=== PATIENT | male | born 1965 | race Caucasian/White ===

== ENCOUNTER 2017-12-22 12:15 | Emergency (ER) | payer OTHER ==
--- OUTSIDE RECORDS SUMMARY | 2017-12-22 12:18 | XMS REPORT | Clinical Summary ---
:1965 Author Organization [facility] Address [address] [place] [address] Care Team Providers Name Role Phone Jada Bullock MD Primary Care Provider Allergies Active Allergy Reactions Severity Noted Date Comments No Known Drug Allergies 12/02/2015 Current Medications Prescription Sig. Disp. Refills Start Date End Date Status cetirizine (ZyrTEC) 10 Take 10 mg by Active MG tablet mouth daily. dicyclomine (BENTYL) 10 Take 10 mg by Active MG capsule mouth 4 (four) times a day before meals and nightly. mometasone (NASONEX) 50 2 sprays into each 17 g 2 07/14/2016 07/14/2017 mcg/actuation nasal nostril daily. spray Active Problems Problem Noted Date Abnormal MRI 02/27/2017 Overview: Maybe low HGH Irritable bowel syndrome without diarrhea 02/02/2016 Post-nasal drip 02/02/2016 Anxiety 12/02/2015 Overview: rx for lexapro written in 09/2015; but he never filled it/took it He now reports that symptoms have improved with lifestyle modifications alone Insomnia 12/02/2015 Obstructive sleep apnea syndrome 12/02/2015 Overview: On 7 cm cpap managed by Dr Kirkland MVP (mitral valve prolapse) Encounters Date Type Specialty Care Team Description 09/13/2017 Hospital Encounter Procedural Mina Valderrama Cardiomegaly Cardiology MD Demario 09/11/2017 Transcribe Orders Procedural Mina Valderrama Cardiomegaly (Primary Cardiology MD Demario Dx) 09/07/2017 Hospital Encounter Procedural Mina Valderrama Moderate mitral Cardiology MD Demario regurgitation 09/05/2017 Transcribe Orders Procedural Mina Valderrama Moderate mitral Cardiology MD Demario regurgitation (Primary Dx) 02/27/2017 Office Visit Internal Medicine Jada Bullock, Encounter for general adult medical examination with abnormal findings (Primary Dx); Post-nasal drip; Primary insomnia; Anxiety; Obstructive sleep apnea syndrome; Need for hepatitis C screening test; Growth hormone deficiency after 12/21/2016 Family History Medical History Relation Name Comments Cancer Father Shiva Prostate Age 56, Spot Radiation Diabetes Father Shiva Type 2, Insulin, pills Hypertension Father Shiva Cancer Maternal Grandfather Amish Prostate 80's Diabetes Maternal Grandfather Amish Pills Hypertension Maternal Grandfather Amish Hypertension Maternal Grandmother Delores Cancer Paternal Grandfather Esteban Prostate Age 70, Chemo, Spread Hypertension Paternal Grandmother Janice Relation Name Status Comments Father Shiva Maternal Grandfather Amish Maternal Grandmother Delores Paternal Grandfather Esteban Paternal Grandmother Janice Social History Tobacco Use Types Packs/Day Years Used Date Never Smoker Alcohol Use Drinks/Week oz/Week Comments Yes 2 Cans of beer Occassional Sex Assigned at Date Recorded Not on file Last Filed Vital Signs Vital Sign Reading Time Taken Blood Pressure 136/77 09/13/2017 9:44 AM [facility] TECHNICIAN Pulse 60 09/13/2017 9:44 AM [facility]WN TECHNICIAN Temperature 36.6 C (97.9 F) 02/27/2017 9:54 AM CDT Respiratory Rate 16 09/07/2017 10:25 AM LAWN TECHNICIAN Oxygen Saturation 99% 09/13/2017 9:44 AM LAWN TECHNICIAN Inhaled Oxygen Concentration - - Weight 95.3 kg (210 lb) 09/13/2017 9:44 AM LAWN TECHNICIAN Height 188 cm (6' 2") 09/13/2017 9:44 AM LAWN TECHNICIAN Body Mass Index 26.96 09/13/2017 9:44 AM LAWN TECHNICIAN Plan of Treatment Health Maintenance Due Date Last Done Comments INFLUENZA VACCINE 05/09/2017 COLONOSCOPY 12/07/2025 12/08/2015 Procedures Procedure Name Priority Date/Time Associated Diagnosis Comments ECHOCARDIOGRAM Routine 09/07/2017 10:52 Moderate mitral Results for this TRANSESOPHAGEAL W AM [facility]WN TECHNICIAN regurgitation procedure are in AGITATED SALINE the results section. after 12/21/2016 Results Cardiac mri function viability chf evaluation (09/13/2017 11:21 AM) Specimen Performing Laboratory [facility] [address] [place] [address] [facility] CMR Report Name:MINA SCOTT :1965 Scan Date: 2017-09-13 09:52:43 Signed by Carie Metz M.D. (uid:20) 16:29:53. SUMMARY ====== 1.Moderate LV enlargement (LVESD 4.0 cm), mild RV enlargement. Severe biatrial enlargement. NO intracardiac thrombus or mass. Small pericardial effusion. 2.Mild globally decreased LV and RV systolic function (LVEF 44%, RVEF 50%). Systolic septal flattening suggestive of RV pressure overload. 3.NO myocardial infarction or scarring. 4.No evidence of myocardial iron overload. 5.Bileaflet mitral valve prolapse (severe prolapse of the posterior leaflet ) with anterior directed mild-moderate mitral regurgitation (RVol 30 mL, RF 22%).Mild tricuspid regurgitation (RVol 28 mL, RF 23%) 6.The thoracic aorta is of normal caliber without stenosis, aneurysm, or dissection. Normal pulmonary venous anatomy. FINAL IMPRESSION: A.MILD BIVENTRICULAR DYSFUNCTION. B.BILEAFLET MITRAL VALVE PROLAPSE WITH MILD-MODERATE MITRAL REGURGITATION. CORE EXAM ====== MEASUREMENTS ------ ---- VOLUMETRIC ANALYSIS . . || | LV| Reference| RV| Reference | +------+-------+-------+ +-------+ + | EDV| ml| 306.7 |(137-215) | 245.8 |(130-233) | | ESV| ml| 172.8 |(33-82) | 123.2 |(28-93) | | CO | L/min |7.77 ||7.11 || | MASS | g | 167.9 |(126-202) | | | | SV | ml| 133.9 |(91-144)| 122.6 |(84-155)| | EF | % | 43.66 |(58-76) | 49.88 |(53-79) | '------+-------+-------+ +-------+ ' HEART RATE:58 LV DIMENSIONS WALL THICKNESS - ANTEROSEPTAL:0.5 cm WALL THICKNESS - INFEROLATERAL:0.6 cm LV ISREAL:6.4 cm LV ESD:4 cm LA DIMENSIONS (LV SYSTOLE) DIAMETER:5.8 cm AREA - 2 CHAMBER:37.6 cm^2 LENGTH - 2 CHAMBER:6.3 cm AREA - 4 CHAMBER:49.9 cm^2 LENGTH - 4 CHAMBER:7.3 cm VOLUME:253.14 ml AORTIC ROOT DIMENSIONS DIAMETER - ANNULUS:2.8 cm DIAMETER - SINUS OF VALSALVA:4.1 cm DIAMETER - SINOTUBULAR JUNCTION:3.1 cm AORTIC ROOT SIZE:MILDLY DILATED IRON QUANTIFICATION MYOCARDIAL T2*:40 msec CONDENSED SUMMARY ------ ---- LV:Normal Wall Thickness. Cavity Size is Normal. No Mass/Thrombus. RV:Normal Wall Thickness. Contractility is Normal. Cavity Size is Normal. No Mass/Thrombus. No Pacemaker/Defibrillator Wire. IVS:SYSTOLIC FLATTENING (RV PRESSURE OVERLOAD). LA:Cavity Size is Normal. No Mass/Thrombus. IAS:LIPOMATOUS HYPERTROPHY. RA:Cavity Size is Normal. No Mass/Thrombus. No Additional Findings. No Pacemaker/Defibrillator Wire. PER:Normal Pericardium. SMALL Effusion. CIRCUMFERENTIAL. No Diastolic Collapse. PE:No Pleural Effusion. AV:Trileaflet. No Aortic Regurgitation. No Aortic Stenosis. TV:Normal Leaflets. MILD Tricuspid Regurgitation. Tricuspid Regurgitant Volume is 28 ml. Tricuspid Regurgitant Fraction is 23 %. No Tricuspid Stenosis. RVol=RVSV 123-PAFF 95. RF=RVol/RVSV. MV:Normal Leaflets. MILD-MODERATE Mitral Regurgitation. Mitral Regurgitant Volume is 30 ml. Mitral Regurgitant Fraction is 22 %. No Mitral Stenosis. RVol= LVSV 134-[id number]. RF=RVol/LVSV. PV:Normal Leaflets. No Pulmonic Regurgitation. No Pulmonic Stenosis. 17 SEGMENT ------ ---- . ------ -------. | Segments | Wall Motion | Hyperenhancement | Stress Perfusion | Interpretation | + + + + +--- ------ -------+ | Base Anterior| Mild/Mod Hypo | None ||| | Base Anteroseptal| Mild/Mod Hypo | None ||| | Base Inferoseptal| Mild/Mod Hypo | None ||| | Base Inferior| Mild/Mod Hypo | None ||| | Base Inferolateral | Mild/Mod Hypo | None ||| | Base Anterolateral | Mild/Mod Hypo | None ||| | Mid Anterior | Mild/Mod Hypo | None ||| | Mid Anteroseptal | Mild/Mod Hypo | None ||| | Mid Inferoseptal | Mild/Mod Hypo | None ||| | Mid Inferior | Mild/Mod Hypo | None ||| | Mid Inferolateral| Mild/Mod Hypo | None ||| | Mid Anterolateral| Mild/Mod Hypo | None ||| | Apical Anterior| Mild/Mod Hypo | None ||| | Apical Septal| Mild/Mod Hypo | None ||| | Apical Inferior| Mild/Mod Hypo | None ||| | Apical Lateral | Mild/Mod Hypo | None ||| | Hudson | Mild/Mod Hypo | None ||| + + + + +--- ------ -------+ | RV Segments| Wall Motion | Hyperenhancement | Stress Perfusion | Interpretation | + + + + +--- ------ -------+ | RV Basal Anterior| Mild/Mod Hypo | None ||| | RV Basal Inferior| Mild/Mod Hypo | None ||| | RV Mid | Mild/Mod Hypo | None ||| | RV Apical| Mild/Mod Hypo | None ||| ' + + + +--- ------ -------' FINDINGS INFARCT/SCAR SIZE:0 % VASCULAR ====== SCAN INFO ====== GENERAL ------ ---- SEDATION SEDATION USED?:No CONTRAST AGENT TYPE:Dotarem LOT NUMBER:[id number] EXPIRATION DATE:2019-01-06 00:00:00 VOLUME ADMINISTERED:30 ml DOSAGE FOR 0.5M:0.16 mmol/kg SERUM CREATININE:1 sCr GFR:83.4 ml/min/1.73m^2 FEMALE:No OR BLACK:No CREATININE DATE:2017-09-13 00:00:00 LAB RESULT HEMATOCRIT LEVEL:50 % HEMATOCRIT DATE:2017-09-13 00:00:00 VITALS HEIGHT:74 in HEIGHT:187.96 cm BODY WEIGHT:209.99 lbs BODY WEIGHT:95.25 kgs BSA::2.22 m^2 SYSTOLIC BP:136 mmHg DIASTOLIC BP:77 mmHg HEART RATE:60 BPM HEART RHYTHM:Sinus Rhythm PULSE SEQUENCE PULSE SEQUENCES:Single-Shot SSFP, IR SSFP - Single Shot, Single Shot BB FAYE, SSFP Cine, Phase Contrast Velocity Mapping, 3D MRA w and w/o contrast SETUP TYPE:Clinical INPATIENT:No LOCATION:[facility] INCOMPLETE SCAN:No REASON(S) FOR SCAN:CHF REFERRING PHYSICIAN:Mina Valderrama MD TECHNICIANS:Agusto Winslow ASSISTANTS:1) Preet Kohler 2) Sunny Laguna RT 3) Bob CHAPMAN ------ ---- Patient Account [id number] CPT Codes 42272, [ , ]66162 ICD10 Codes I51.7 Procedure Note Interface, Radiology Results In - 09/13/2017 4:30 PM [facility] TECHNICIAN Omero Mackey CMR Report Name: MINA SCOTT : 1965 Scan Date: 2017-09-13 09:52:43 Signed by Carie Metz M.D. (uid:20) 16:29:53. SUMMARY 1. Moderate LV enlargement (LVESD 4.0 cm), mild RV enlargement. Severe biatrial enlargement. NO intracardiac thrombus or mass. Small pericardial effusion. 2. Mild globally decreased LV and RV systolic function (LVEF 44%, RVEF 50%). Systolic septal flattening suggestive of RV pressure overload. 3. NO myocardial infarction or scarring. 4. No evidence of myocardial iron overload. 5. Bileaflet mitral valve prolapse (severe prolapse of the posterior leaflet) with anterior directed mild-moderate mitral regurgitation (RVol 30 mL, RF 22%). Mild tricuspid regurgitation (RVol 28 mL, RF 23%) 6. The thoracic aorta is of normal caliber without stenosis, aneurysm, or dissection. Normal pulmonary venous anatomy. FINAL IMPRESSION: A. MILD BIVENTRICULAR DYSFUNCTION. B. BILEAFLET MITRAL VALVE PROLAPSE WITH MILD-MODERATE MITRAL REGURGITATION. CORE EXAM MEASUREMENTS VOLUMETRIC ANALYSIS . . | | | LV | Reference | RV | Reference | +------+-------+-------+ +-------+ + | EDV | ml | 306.7 | (137-215) | 245.8 | (130-233) | | ESV | ml | 172.8 | (33-82) | 123.2 | (28-93) | | CO | L/min | 7.77 | | 7.11 | | | MASS | g | 167.9 | (126-202) | | | | SV | ml | 133.9 | (91-144) | 122.6 | (84-155) | | EF | % | 43.66 | (58-76) | 49.88 | (53-79) | '------+-------+-------+ +-------+ ' HEART RATE: 58 LV DIMENSIONS WALL THICKNESS - ANTEROSEPTAL: 0.5 cm WALL THICKNESS - INFEROLATERAL: 0.6 cm LV ISREAL: 6.4 cm LV ESD: 4 cm LA DIMENSIONS (LV SYSTOLE) DIAMETER: 5.8 cm AREA - 2 CHAMBER: 37.6 cm^2 LENGTH - 2 CHAMBER: 6.3 cm AREA - 4 CHAMBER: 49.9 cm^2 LENGTH - 4 CHAMBER: 7.3 cm VOLUME: 253.14 ml AORTIC ROOT DIMENSIONS DIAMETER - ANNULUS: 2.8 cm DIAMETER - SINUS OF VALSALVA: 4.1 cm DIAMETER - SINOTUBULAR JUNCTION: 3.1 cm AORTIC ROOT SIZE: MILDLY DILATED IRON QUANTIFICATION MYOCARDIAL T2*: 40 msec CONDENSED SUMMARY LV:Normal Wall Thickness. Cavity Size is Normal. No Mass/Thrombus. RV:Normal Wall Thickness. Contractility is Normal. Cavity Size is Normal. No Mass/Thrombus. No Pacemaker/Defibrillator Wire. IVS:SYSTOLIC FLATTENING (RV PRESSURE OVERLOAD). LA:Cavity Size is Normal. No Mass/Thrombus. IAS:LIPOMATOUS HYPERTROPHY. RA:Cavity Size is Normal. No Mass/Thrombus. No Additional Findings. No Pacemaker/Defibrillator Wire. PER:Normal Pericardium. SMALL Effusion. CIRCUMFERENTIAL. No Diastolic Collapse. PE:No Pleural Effusion. AV:Trileaflet. No Aortic Regurgitation. No Aortic Stenosis. TV:Normal Leaflets. MILD Tricuspid Regurgitation. Tricuspid Regurgitant Volume is 28 ml. Tricuspid Regurgitant Fraction is 23 %. No Tricuspid Stenosis. RVol=RVSV 123-PAFF 95. RF=RVol/RVSV. MV:Normal Leaflets. MILD-MODERATE Mitral Regurgitation. Mitral Regurgitant Volume is 30 ml. Mitral Regurgitant Fraction is 22 %. No Mitral Stenosis. RVol= LVSV 134-DLEC690. RF=RVol/LVSV. PV:Normal Leaflets. No Pulmonic Regurgitation. No Pulmonic Stenosis. 17 SEGMENT . . | Segments | Wall Motion | Hyperenhancement | Stress Perfusion | Interpretation | + + + + +--- + | Base Anterior | Mild/Mod Hypo | None | | | | Base Anteroseptal | Mild/Mod Hypo | None | | | | Base Inferoseptal | Mild/Mod Hypo | None | | | | Base Inferior | Mild/Mod Hypo | None | | | | Base Inferolateral | Mild/Mod Hypo | None | | | | Base Anterolateral | Mild/Mod Hypo | None | | | | Mid Anterior | Mild/Mod Hypo | None | | | | Mid Anteroseptal | Mild/Mod Hypo | None | | | | Mid Inferoseptal | Mild/Mod Hypo | None | | | | Mid Inferior | Mild/Mod Hypo | None | | | | Mid Inferolateral | Mild/Mod Hypo | None | | | | Mid Anterolateral | Mild/Mod Hypo | None | | | | Apical Anterior | Mild/Mod Hypo | None | | | | Apical Septal | Mild/Mod Hypo | None | | | | Apical Inferior | Mild/Mod Hypo | None | | | | Apical Lateral | Mild/Mod Hypo | None | | | | Hudson | Mild/Mod Hypo | None | | | + + + + +--- + | RV Segments | Wall Motion | Hyperenhancement | Stress Perfusion | Interpretation | + + + + +--- + | RV Basal Anterior | Mild/Mod Hypo | None | | | | RV Basal Inferior | Mild/Mod Hypo | None | | | | RV Mid | Mild/Mod Hypo | None | | | | RV Apical | Mild/Mod Hypo | None | | | ' + + + +--- ' FINDINGS INFARCT/SCAR SIZE: 0 % VASCULAR SCAN INFO GENERAL SEDATION SEDATION USED?: No CONTRAST AGENT TYPE: Dotarem LOT NUMBER: [id number] EXPIRATION DATE: 2019-01-06 00:00:00 VOLUME ADMINISTERED: 30 ml DOSAGE FOR 0.5M: 0.16 mmol/kg SERUM CREATININE: 1 sCr GFR: 83.4 ml/min/1.73m^2 FEMALE: No OR BLACK: No CREATININE DATE: 2017-09-13 00:00:00 LAB RESULT HEMATOCRIT LEVEL: 50 % HEMATOCRIT DATE: 2017-09-13 00:00:00 VITALS HEIGHT: 74 in HEIGHT: 187.96 cm BODY WEIGHT: 209.99 lbs BODY WEIGHT: 95.25 kgs BSA:: 2.22 m^2 SYSTOLIC BP: 136 mmHg DIASTOLIC BP: 77 mmHg HEART RATE: 60 BPM HEART RHYTHM: Sinus Rhythm PULSE SEQUENCE PULSE SEQUENCES: Single-Shot SSFP, IR SSFP - Single Shot, Single Shot BB FAYE, SSFP Cine, Phase Contrast Velocity Mapping, 3D MRA w and w/o contrast SETUP TYPE: Clinical INPATIENT: No LOCATION: [facility] INCOMPLETE SCAN: No REASON(S) FOR SCAN: CHF REFERRING PHYSICIAN: Mina Valderrama MD TECHNICIANS: Agusto Winslow ASSISTANTS: 1) Preet Kohler 2) Sunny DIOR 3) Bob CHAPMAN Patient Account [id number] CPT Codes 22438, [ , ]60697 ICD10 Codes I51.7 Estimated GFR (09/13/2017 9:35 AM) Component Value Ref Range GFR Non Af Amer 78 mL/min/1.73 m2 GFR Af Amer >90 mL/min/1.73 m2 Comment: Chronic kidney disease: <60 mL/min/1.73m2 Kidney failure: <15 mL/min/1.73m2 The estimated GFR is calculated from the IDMS-traceable Modification of Diet in Renal Disease Equation. The accuracy of the calculation is poor when the creatinine is normal. Calculated values >90 mL/min/1.73m2 are not reported. This equation has not been validated in children (<18 years), women, the elderly (>70 years), or ethnic groups other than Caucasians and Americans. Specimen Performing Laboratory Plasma specimen [facility] DEPARTMENT OF PATHOLOGY AND GENOMIC MEDICINE [address] [place] [address] POC hematocrit (09/13/2017 9:35 AM) Component Value Ref Range POC hematocrit 50 41 - 51 % Specimen Performing Laboratory Blood [facility] OF PATHOLOGY AND GENOMIC MEDICINE [address] [place] [address] 19083 Creatinine level (09/13/2017 9:35 AM) Component Value Ref Range Creatinine 1.0Comment: Testing performed on the ISTAT instrument by 0.7 - 1.2 mg/dL VILLA Gilbert [id number] Specimen Performing Laboratory Plasma specimen [facility] [address] [place] [address] Echocardiogram transesophageal (09/07/2017 10:52 AM) Specimen [facility] [address] [place], [place] [id number] Narrative Transesophageal Echo Report [address] [place] [address] Pat.Name:Andres SCOTT.ID:[id number] St.Date: 09/07/2017Refer.MD:MINA VALDERRAMA MD Exam Time: 9:07:00 AMStudy Type:ALIN Height:74inWeight:210lb BSA: 2.22 m2 DOBAge:1965,52Y Sex: MALEBP:124/73 HR:56 bpmSonogrphr: Natalie Reyes MD Pat. Stat.:OutpatientStudy Status:Final Echo Event ID:[id number] Order ID:[id number] Reason for Study:Mitral regurgitation Procedures:Transesophageal Echo with Colorflow Doppler Race:C SUMMARY: LV size is severely enlarged. Estimated EF is 55-59%. LA volume is enlarged. 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 Severe prolapse of P2/P3 segment. Difficult to assessmitral regurgitation severity, suspect a moderate lesion. A CMR will be helpful in further determination of MR severity. FINDINGS: ALIN:The attending rn labor and delivery performed the ALIN procedure and waspresent for the entire duration. The patient was counseledand an informed consent was obtained. Topical and intravenousanesthesia was administered. The esophagus was intubatedwithout difficulty. The probe was passed to the gastricfundus and all standard echocardiographic views wereobtained. The patient tolerated the procedure well. LV: LV size is severely enlarged. LV EF is normal. Estimated EF is55-59%. RV: RV size is normal. RV systolic function is normal. LA: LA volume is enlarged. No thrombus or mass is visualized in theLA or LA appendage. RA: RA size is normal. AO: Aortic root diameter is normal in size. No significant atheroscleroticchanges seen in the aortic arch and descendingaorta. ELA: No pericardial effusion. Cntrst: No intracardiac shunt detected. AV: No structural AV abnormalities noted. 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 Severeprolapse of P2/P3 segment. Difficult to assess mitralregurgitation severity, suspect a moderate lesion. A CMRwill be helpful in further determination of MR severity. PV: No structural PV abnormalities noted. TV: No structural TV abnormalities noted. Mild tricuspid regurgitation ALIN: Anesthesia: Moderate SedationASA Class: 2 Physician: Benigno Gonzalez MD Network Architect Manager: Natalie Reyes MD Pre TEEBP HR Post ALIN BP HR 124/73 25303/64 58 Meds:Viscous xylocaine, Cetacaine spray to oropharynx, Versed 3 mg IV, Fentanyl 75 mcg IV Complications: None Condition: Stable MEASUREMENTS: 2D LV Short Frac LVIDd6.9 cm (3.6-5.2) LV%fs 31.9 %(18-42) LVIDs4.7 cm (2.3-3.9) LV FracAreaCh LV Ad 37.7 cm2(9.5-22.3) LV A% 57.7 % LV As 15.9 cm2(4-11.6) Parasternal Long Delta LVOT 2.2 cm Aortic Valve AV rosa 4.7 cm Signed 09/08/2017 08:20 AM Benigno Gonzalez MD Procedure Note Interface, Radiology Results In - 09/08/2017 8:21 AM [facility] Transesophageal Echo Report [id number], [address], [place], [place] [address] Pat.Name: MINA SCOTT Pat.ID: [id number] .Date: 09/07/2017 Refer.MD: MINA VALDERRAMA MD Exam Time: 9:07:00 AM Study Type:ALIN Height: 74in Weight: 210lb BSA: 2.22 m2 Age: 9 1965,52Y Sex: MALE BP: 124/73 HR: 56 bpm Sonogrphr: Natalie eRyes MD Pat. Stat.:Outpatient Study Status:Final Echo Event ID:[id number] Order ID: [id number] Reason for Study:Mitral regurgitation Procedures:Transesophageal Echo with Colorflow Doppler Race: C SUMMARY: LV size is severely enlarged. Estimated EF is 55-59%. LA volume is enlarged. 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 Severe prolapse of P2/P3 segment. Difficult to assess mitral regurgitation severity, suspect a moderate lesion. A CMR will be helpful in further determination of MR severity. FINDINGS: ALIN: The attending rn labor and delivery performed the ALIN procedure and was present for the entire duration. The patient was counseled and an informed consent was obtained. Topical and intravenous anesthesia was administered. The esophagus was intubated without difficulty. The probe was passed to the gastric fundus and all standard echocardiographic views were obtained. The patient tolerated the procedure well. LV: LV size is severely enlarged. LV EF is normal. Estimated EF is 55-59%. RV: RV size is normal. RV systolic function is normal. LA: LA volume is enlarged. No thrombus or mass is visualized in the LA or LA appendage. RA: RA size is normal. AO: Aortic root diameter is normal in size. No significant atherosclerotic changes seen in the aortic arch and descending aorta. ELA: No pericardial effusion. Cntrst: No intracardiac shunt detected. AV: No structural AV abnormalities noted. 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 Severe prolapse of P2/P3 segment. Difficult to assess mitral regurgitation severity, suspect a moderate lesion. A CMR will be helpful in further determination of MR severity. PV: No structural PV abnormalities noted. TV: No structural TV abnormalities noted. Mild tricuspid regurgitation ALIN: Anesthesia: Moderate Sedation ASA Class: 2 Physician: Benigno Gonzalez MD Network Architect Manager: Natalie Reyes MD Pre ALIN BP HR Post ALIN BP HR 124/73 56 115/64 58 Meds: Viscous xylocaine, Cetacaine spray to oropharynx, Versed 3 mg IV, Fentanyl 75 mcg IV Complications: None Condition: Stable MEASUREMENTS: 2D LV Short Frac LVIDd 6.9 cm (3.6-5.2) LV%fs 31.9 % (18-42) LVIDs 4.7 cm (2.3-3.9) LV FracAreaCh LV Ad 37.7 cm2 (9.5-22.3) LV A% 57.7 % LV As 15.9 cm2 (4-11.6) Parasternal Long Delta LVOT 2.2 cm Aortic Valve AV rosa 4.7 cm Signed 09/08/2017 08:20 AM Benigno Gonzalez MD Growth hormone (02/27/2017 10:33 AM) Component Value Ref Range Growth hormone <0.1 0.0 - 10.0 ng/mL Specimen Performing Laboratory Blood [facility] Narrative Performed at: [id number] Enterprise Architect Manager: Abundio Epps MD, Phone:[phone] Microscopic Examination (02/27/2017 10:29 AM) Component Value Ref Range WBC, UA None seen 0 - 5 /hpf RBC, UA None seen 0 - 2 /hpf Epithelial cells (non renal) None seen 0 - 10 /hpf Bacteria, UA None seen None seen/Few Specimen Performing Laboratory [facility] Narrative Performed at: [id number] Enterprise Architect Manager: Troy Redmond MD, Phone:[phone] Hepatitis C antibody (02/27/2017 10:29 AM) Component Value Ref Range Hepatitis C Ab <0.1 0.0 - 0.9 s/co ratio Comment: Negative: < 0.8 Indeterminate: 0.8 - 0.9 Positive: > 0.9 The CDC recommends that a positive HCV antibody result be followed up with a HCV Nucleic Acid Amplification test (802579). Specimen Performing Laboratory Blood [facility] Narrative Performed at:[id number] Enterprise Architect Manager: Troy Redmond MD, Phone:[phone] Vitamin D 25 hydroxy level (02/27/2017 10:29 AM) Component Value Ref Range Vitamin D, 25-hydroxy 29.1 (L) 30.0 - 100.0 ng/mL Comment: Vitamin D deficiency has been defined by the [place] of Medicine and an Endocrine Society practice guideline as a level of serum 25-OH vitamin D less than 20 ng/mL (1,2). The Endocrine Society went on to further define vitamin D insufficiency as a level between 21 and 29 ng/mL (2). 1. IOM ([place] of Medicine). 2010. Dietary reference intakes for calcium and D. [place]: The National Academies Press. 2. Blake MF, Gautam NC, Thang QUINONEZ, et al. Evaluation, treatment, and prevention of vitamin D deficiency: an Endocrine Society clinical practice guideline. JCEM. 2010; 96(7):1911-30. Specimen Performing Laboratory Blood [facility] Narrative Performed at: [id number] Enterprise Architect Manager: Troy Redmond MD, Phone:[phone] Urinalysis, automated with microscopy (02/27/2017 10:29 AM) Component Value Ref Range Specific gravity, urine 1.008 1.005 - 1.030 pH, urine 6.0 5.0 - 7.5 Color, UA Yellow Yellow Appearance Clear Clear WBC esterase, urine Negative Negative Protein, UA Negative Negative/Trace Glucose, urine Negative Negative Ketones, UA Negative Negative Occult blood, urine Negative Negative Bilirubin, UA Negative Negative Urobilinogen, UA 0.2 0.2 - 1.0 mg/dL Nitrite, UA Negative Negative Microscopic examination CommentComment: Microscopic follows if indicated. Microscopic examination See below:Comment: Microscopic was indicated and was performed. Specimen Performing Laboratory Urine [facility] Narrative Performed at:[address] [place], [place] [id number] Enterprise Architect Manager: Troy Redmond MD, Phone:[phone] CBC with platelet and differential (02/27/2017 10:29 AM) Component Value Ref Range WBC 4.6 3.4 - 10.8 x10E3/uL RBC 5.09 4.14 - 5.80 x10E6/uL HGB 15.9 12.6 - 17.7 g/dL HCT 46.2 37.5 - 51.0 % MCV 91 79 - 97 fL MCH 31.2 26.6 - 33.0 pg MCHC 34.4 31.5 - 35.7 g/dL RDW 13.7 12.3 - 15.4 % Platelet count 274 150 - 379 x10E3/uL Neutrophils 48 % Lymphocytes 36 % Monocytes 9 % Eosinophils 6 % Basophils 1 % Neutrophils, absolute 2.3 1.4 - 7.0 x10E3/uL Lymphocytes, absolute 1.7 0.7 - 3.1 x10E3/uL Monocytes, absolute 0.4 0.1 - 0.9 x10E3/uL Eosinophils, absolute 0.3 0.0 - 0.4 x10E3/uL Basophils, absolute 0.0 0.0 - 0.2 x10E3/uL Immature granulocytes 0 % Immature grans (abs) 0.0 0.0 - 0.1 x10E3/uL Specimen Performing Laboratory Blood [facility] Narrative Performed at:[address] [place], [place] [id number] Enterprise Architect Manager: Troy Redmond MD, Phone:[phone] Thyroid stimulating hormone (02/27/2017 10:29 AM) Component Value Ref Range TSH 3.980 0.450 - 4.500 uIU/mL Specimen Performing Laboratory Blood [facility] Narrative Performed at:[address] [place], [place] [id number] Enterprise Architect Manager: Troy Redmond MD, Phone:[phone] Lipid panel (02/27/2017 10:29 AM) Component Value Ref Range Cholesterol 170 100 - 199 mg/dL Triglycerides 58 0 - 149 mg/dL HDL cholesterol 60 >39 mg/dL VLDL cholesterol malgorzata 12 5 - 40 mg/dL LDL cholesterol calculated 98 0 - 99 mg/dL Non-HDL cholesterol 110 0 - 129 mg/dL Specimen Performing Laboratory Blood [facility] Narrative Performed at: [facility] [id number] Enterprise Architect Manager: Troy Redmond MD, Phone:[phone] Comprehensive metabolic panel (02/27/2017 10:29 AM) Component Value Ref Range Glucose 89 65 - 99 mg/dL BUN, whole blood 12 6 - 24 mg/dL Creatinine 1.03 0.76 - 1.27 mg/dL EGFR Non-Afr. [place] Island[place] 84 >59 mL/min/1.73 EGFR 97 >59 mL/min/1.73 BUN/creatinine ratio 12 9 - 20 Sodium 141 134 - 144 mmol/L Potassium 4.6 3.5 - 5.2 mmol/L Chloride 101 96 - 106 mmol/L CO2 25 18 - 29 mmol/L Calcium 9.3 8.7 - 10.2 mg/dL Protein 6.8 6.0 - 8.5 g/dL Albumin, S 4.7 3.5 - 5.5 g/dL Globulin, total 2.1 1.5 - 4.5 g/dL Albumin/globulin ratio 2.2 1.2 - 2.2 Total bilirubin 0.8 0.0 - 1.2 mg/dL Alkaline phosphatase 83 39 - 117 IU/L AST 17 0 - 40 IU/L ALT 17 0 - 44 IU/L Specimen Performing Laboratory Blood [facility] Narrative Performed at: [id number] Enterprise Architect Manager: Troy Redmond MD, Phone:[phone] after 12/21/2016 Insurance Payer Benefit Plan / Group Subscriber ID Type Phone Address [facility] CHOICE/CHOICE + xxxxxxxxx HMO/PPO Home: [id number] [id number] [id number]
[2017-12-22] MEDS ORDERED: HYDROCODONE/APAP 10/325 TAB ONE (12:56)
--- NOTE | 2017-12-22 13:13 | RAD REPORT ---
EXAM DESCRIPTION: RAD - Wrist Right 3 View - 12/22/2017 1:07 pm CLINICAL HISTORY: Foreign body COMPARISON: None. FINDINGS: No fracture or dislocation. Large fishhook is present in the palmar soft tissues of the wr ist.
[2017-12-22] MEDS ORDERED: LIDOCAINE 1% 20 ML MDV ONE (13:19)
--- NOTE | 2017-12-22 14:48 | EDPHYS ---
Physician Documentation [facility] Name: Mina Ramirez Age: 52 yrs Sex: Male : 1965 Arrival Date: 12/22/2017 Time: 12:18 Bed 5 Private MD: ED Physician Mela Baptiste HPI: 12/22 13:40 This 52 yrs old Male presents to ER via Ambulatory with complaints of FISH pm1 HOOK IN WRIST. 13:40 The patient or guardian reports Foreign body in right wrist. The complaints affect the pm1 right wrist diffusely. Context: The problem was sustained outdoors, resulted from Fishing. Onset: The symptoms/episode began/occurred just prior to arrival. Modifying factors: The symptoms are alleviated by nothing, the symptoms are aggravated by movement. Associated signs and symptoms: Pertinent negatives: cyanosis distally, decreased sensation distally, numbness distally, tingling distally. The patient has not experienced similar symptoms in the past. Tetanus less than 6 months old. Historical: - Allergies: 12:23 No Known Allergies; tl3 - Home Meds: 12:23 None [Active]; tl3 - Immunization history:: Adult Immunizations up to date. - Social history:: Smoking status: Patient/guardian denies using tobacco, never smoked. ROS: 13:40 Constitutional: Negative for fever, chills, and weight loss, Eyes: Negative for injury, pm1 pain, redness, and discharge, ENT: Negative for injury, pain, and discharge, Neck: Negative for injury, pain, and swelling, Cardiovascular: Negative for chest pain, palpitations, and edema, Respiratory: Negative for shortness of breath, cough, wheezing, and pleuritic chest pain, Abdomen/GI: Negative for abdominal pain, nausea, vomiting, diarrhea, and constipation, Back: Negative for injury and pain, MS/Extremity: Negative for injury and deformity. 13:40 MS/extremity: Positive for puncture, of the palmar aspect of right wrist, fish hook. Exam: 13:40 Hand exam: Exam is positive for fish hook in right wrist. ROM: intact in all pm1 extremities, Circulation is intact in all extremities. sensation intact. 13:40 Constitutional: This is a well developed, well nourished patient who is awake, alert, and in no acute distress. 13:40 Head/Face: Normocephalic, atraumatic. Chest/axilla: Normal chest wall appearance and motion. Nontender with no deformity. No lesions are appreciated. Cardiovascular: Regular rate and rhythm with a normal S1 and S2. No gallops, murmurs, or rubs. Normal PMI, no JVD. No pulse deficits. Respiratory: Lungs have equal breath sounds bilaterally, clear to auscultation and percussion. No rales, rhonchi or wheezes noted. No increased work of breathing, no retractions or nasal flaring. Back: No spinal tenderness. No costovertebral tenderness. Full range of motion. Skin: Warm, dry with normal turgor. Normal color with no rashes, no lesions, and no evidence of cellulitis. 13:40 Neuro: Orientation: is normal, Motor: is normal, moves all fours. Vital Signs: 12:23 BP 139 / 84; Pulse 58; Resp 16; Temp 98.9(O); Pulse Ox 98% ; Weight 90.72 kg; Height 6 tl3 ft. 2 in. (187.96 cm); 14:00 BP 127 / 84; Pulse 76; Resp 19; Pulse Ox 99% on R/A; aj 12:23 Body Mass Index 25.68 (90.72 kg, 187.96 cm) tl3 Procedures: 13:40 Foreign Body Removal: a fishhook, from the right palmar aspect of right wrist, by pm1 Pushed hook through and cut love off. Dressinx4s were used to dress the wound, The patient tolerated the removal well, lidocaine 1% locally 3ml. MDM: 12:29 Patient medically screened. pm1 13:33 Data reviewed: vital signs. Data interpreted: Pulse oximetry: on room air is 98 %. pm1 Interpretation: normal. Counseling: I had a detailed discussion with the patient and/or guardian regarding: the historical points, exam findings, and any diagnostic results supporting the discharge/admit diagnosis, radiology results, the need for outpatient follow up, to return to the emergency department if symptoms worsen or persist or if there are any questions or concerns that arise at home. 12/22 12:30 Order name: Wrist Right 3 View XRAY pm1 12/22 13:13 Order name: RAD; Complete Time: 13:34 EDMS 12/22 13:34 Order name: Wound Care; Complete Time: 14:06 pm1 12/22 13:34 Order name: Wound dressing; Complete Time: 14:06 pm1 Administered Medications: 13:00 Drug: [place] 10 mg-325 mg 1 tabs Route: PO; aj1 14:07 Follow up: Response: Pain is decreased aj 13:15 Drug: Lidocaine (1 %) 5 ml Volume: 5 ml; Route: Infiltration; aj Disposition: 12/23 07:14 Co-signature as Attending Physician, Mela Baptiste MD. ma2 Disposition: 12/22/17 13:36 Discharged to Home. Impression: Puncture wound with foreign body of left wrist - fish hook removed. - Condition is Stable. - Discharge Instructions: Fish Hook Removal. - Prescriptions for Tylenol- Codeine #3 300-30 mg Oral Tablet - take 1 tablet by ORAL route every 6 hours As needed; 15 tablet. Doxycycline Hyclate 100 mg Oral Tablet - take 1 tablet by ORAL route every 12 hours; 20 tablet. - Medication Reconciliation Form, Thank You Letter, Antibiotic Education, Prescription Opioid Use form. - Follow up: Emergency Department; When: As needed; Reason: Worsening of condition. Follow up: Private Physician; When: 2 - 3 days; Reason: Recheck today's complaints, Continuance of care, Re-evaluation by your physician. - Problem is new. - Symptoms have improved. Signatures: Dispatcher [employer] Elle David, RN RN aj1 Airam Peña RN RN aj Syed Whitaker, OYSTER CULTURIST OYSTER CULTURIST pm1 Mela Baptiste MD MD ma2 Mady Murcia RN RN tl3
--- NOTE | 2017-12-22 14:48 | ER ---
Nurse's Notes [facility] Emergency Department Name: Mina Ramirez Age: 52 yrs Sex: Male : 1965 Arrival Date: 12/22/2017 Time: 12:18 Bed 5 Private MD: Diagnosis: Puncture wound with foreign body of left wrist-fish hook removed Presentation: 12/22 12:21 Presenting complaint: Patient states: fish hook to right wrist, about an hour ago. tl3 Transition of care: patient was not received from another setting of care. Onset of symptoms was December 22, 2017. 12:21 Method Of Arrival: Ambulatory tl3 12:21 Acuity: FABIAN 3 tl3 14:24 Care prior to arrival: None. aj1 Triage Assessment: 12:23 General: Appears distressed, well groomed, well developed, well nourished, Behavior is tl3 calm, cooperative, appropriate for age. 12:26 Pain: Complains of pain in right hand Pain currently is 10 out of 10 on a pain scale. tl3 Historical: - Allergies: 12:23 No Known Allergies; tl3 - Home Meds: 12:23 None [Active]; tl3 - Immunization history:: Adult Immunizations up to date. - Social history:: Smoking status: Patient/guardian denies using tobacco, never smoked. Screenin:35 Abuse screen: Denies threats or abuse. Denies injuries from another. Nutritional aj1 screening: No deficits noted. Tuberculosis screening: No symptoms or risk factors identified. 13:30 Fall Risk None identified. aj1 Assessment: 12:35 General: Appears in no apparent distress. uncomfortable, Behavior is calm, cooperative, aj1 appropriate for age. Pain: Complains of pain in palmar aspect of right wrist Pain does not radiate. Neuro: Level of Consciousness is awake, alert, obeys commands, Oriented to person, place, time, situation, Speech is normal, Facial symmetry appears normal. Cardiovascular: Patient's skin is warm and dry. Respiratory: Airway is patent Respiratory effort is even, unlabored, Respiratory pattern is regular, symmetrical. GI: No signs and/or symptoms were reported involving the gastrointestinal system. : No signs and/or symptoms were reported regarding the genitourinary system. EENT: No signs and/or symptoms were reported regarding the EENT system. Derm: No signs and/or symptoms reported regarding the dermatologic system. Skin is pink, warm \T\ dry. normal. Musculoskeletal: No signs and/or symptoms reported regarding the musculoskeletal system. Circulation, motion, and sensation intact. 13:30 Reassessment: Patient appears in no apparent distress at this time. No changes from aj1 previously documented assessment. Patient and/or family updated on plan of care and expected duration. Pain level reassessed. Patient is alert, oriented x 3, equal unlabored respirations, skin warm/dry/pink. 13:57 General:. aj Vital Signs: 12:23 BP 139 / 84; Pulse 58; Resp 16; Temp 98.9(O); Pulse Ox 98% ; Weight 90.72 kg; Height 6 tl3 ft. 2 in. (187.96 cm); 14:00 BP 127 / 84; Pulse 76; Resp 19; Pulse Ox 99% on R/A; aj 12:23 Body Mass Index 25.68 (90.72 kg, 187.96 cm) tl3 ED Course: 12:18 Patient arrived in ED. rg4 12:22 Triage completed. tl3 12:26 Syed Whitaker NP is PHCP. pm1 12:26 Mela Baptiste MD is Attending Physician. pm1 12:33 Elle Oliveira, RN is Primary Nurse. aj1 12:35 Patient has correct armband on for positive identification. Bed in low position. Call aj1 light in reach. Side rails up X 1. 13:45 Arm band placed on. aj1 13:59 Assist provider with foreign body removal of a fish hook from right using alligator aj clamps, Set up for procedure. Performed by Elle Oliveira RN Dressed with gauze bandage, Patient tolerated well. Patient did not have IV access during this emergency room visit. Administered Medications: 13:00 Drug: [place] 10 mg-325 mg 1 tabs Route: PO; aj1 14:07 Follow up: Response: Pain is decreased aj 13:15 Drug: Lidocaine (1 %) 5 ml Volume: 5 ml; Route: Infiltration; aj Outcome: 13:36 Discharge ordered by . pm1 13:58 Discharged to home ambulatory. aj 13:58 Condition: good 13:58 Discharge instructions given to patient, Instructed on discharge instructions, follow up and referral plans. medication usage, Demonstrated understanding of instructions, follow-up care, medications, Prescriptions given X 2. 14:26 Patient left the ED. aj1 Signatures: Elle Oliveira RN RN aj1 Airam Peña RN RN aj Syed Whitaker, JOEL PORTRAIT CONSULTANT pm1 Nichole Barney rg4 Mady Murcia RN RN tl3 Corrections: (The following items were deleted from the chart) 12:25 12:21 Acuity: FABIAN 4 tl3 tl3 14:25 14:25 Arm band placed on aj1 aj1
== END 2017-12-22 14:26 | disposition home or self-care (01) ==
LOC: ER 12:15
DX: S61.541A Puncture wound with foreign body of right wrist, initial encounter (principal); X58.XXXA Exposure to other specified factors, initial encounter; Y93.89 Activity, other specified; Y92.9 Unspecified place or not applicable
CPT/HCPCS: 99283